=== PATIENT | male | born 1990 | race African-American/Black ===

== ENCOUNTER 2017-01-22 09:04 | Emergency (ER) | payer MEDICAID, OTHER ==
[~2017-01-22] VITALS: Ht 175.3 cm; Wt 74.0 kg
[2017-01-22 10:05] VITALS: BP 113/70
[2017-01-22] MEDS ORDERED: CEFTRIAXONE SODIUM 250 MG/VIAL IM ONE (10:30)
[2017-01-22] MEDS ORDERED: AZITHROMYCIN 500 MG TABLET PO ONE (10:30)
[2017-01-22] MEDS ORDERED: LIDOCAINE HCL 1% 20ML VIAL (Pyxis) INJ INFIL ONE (10:30)
[2017-01-22 10:33] LABS: CLARITY URINE CLEAR (CLEAR); COLOR URINE YELLOW (YELLOW); GLUCOSE URINE NEGATIVE (NEGATIVE); KETONES URINE NEGATIVE (NEGATIVE); LEUKOCYTE ESTERASE URINE TRACE (NEGATIVE); NITRITE URINE NEGATIVE (NEGATIVE); OCCULT BLOOD URINE NEGATIVE (NEGATIVE); PROTEIN URINE NEGATIVE (NEGATIVE); SPECIFIC GRAVITY URINE 1.018 (1.005-1.030); UROBILINOGEN URINE 0.2 E.U./dL (0.2-1.0)
== END 2017-01-22 12:00 | disposition home or self-care (01) ==
LOC: ER 09:42
DX: N34.2 Other urethritis (principal); F17.210 Nicotine dependence, cigarettes, uncomplicated
CPT/HCPCS: 81001; 99283; J0696; J3490; Z7610